=== PATIENT | female | born 1960 | race Caucasian/White ===

== ENCOUNTER 2020-09-27 10:12 | Inpatient (IN) | payer OTHER ==
[~2020-09-27] VITALS: Ht 160 cm; Wt 56.7 kg
[2020-09-27 15:50] LABS: HEMOGLOBIN 14.2 gm/dl (12.3-15.3); RED BLOOD COUNT 5.06 M/UL (4.00-5.10); WHITE BLOOD COUNT 6.5 K/UL (4.5-11.0)
[2020-09-27 16:12] LABS: BUN/CREATININE RATIO 23 (0-10)
[2020-09-27] MEDS ORDERED: GLIMEPIRIDE1 MG PO (16:25)
[2020-09-27] MEDS ORDERED: IPRATROPIUM BRO30 ML (16:29)
[2020-09-27] MEDS ORDERED: OMEPRAZOLE20 MG PO (16:29)
[2020-09-27] MEDS ORDERED: TIZANIDINE HCL4 MG PO (16:30)
[2020-09-27] MEDS ORDERED: MONTELUKAST SOD10 MG PO (16:30)
[2020-09-27] MEDS ORDERED: TRULICITY0.75 MG/0. SQ (16:31)
[2020-09-27] MEDS ORDERED: ASPIRIN81 MG PO (16:34)
[2020-09-27] MEDS ORDERED: HYDROXYZINE HCL50 MG PO (16:35)
[2020-09-27] MEDS ORDERED: FISH OIL 1,0001 EAC1 PO (16:35)
[2020-09-27] MEDS ORDERED: PREGABALIN75 MG PO (16:36)
[2020-09-27] MEDS ORDERED: TOPAMAX 25 MG T25 MG PO (16:37)
[2020-09-27] MEDS ORDERED: COZAAR 50MG TAB50 MG PO (16:39)
[2020-09-27] MEDS ORDERED: INVOKANA100 MG PO (16:42)
[2020-09-27] MEDS ORDERED: SYMBICORT 16010.2 GM INH (16:42)
[2020-09-27] MEDS ORDERED: ATORVASTATIN CA20 MG PO (16:44)
[2020-09-27] MEDS ORDERED: VENTOLIN HFA 66.7 GM INH (16:45)
[2020-09-27] MEDS ORDERED: CELEXA40 MG PO (16:45)
[2020-09-27] MEDS ORDERED: PEPCID20 MG PO (16:46)
[2020-09-27] MEDS ORDERED: XYZAL5 MG PO (16:47)
[2020-09-27] MEDS ORDERED: TESSALON PERLE100 MG PO (16:59)
[2020-09-27] MEDS ORDERED: VITAMIN B-121000 MC3 PO (17:00)
[2020-09-27] MEDS ORDERED: MULTI-BETIC TA1 EACH PO (17:00)
[2020-09-27] MEDS ORDERED: VITAMIN D21250 MCG PO (17:00)
[2020-09-28 07:26] LABS: BUN/CREATININE RATIO 21 (0-10)
[2020-10-02 03:44] LABS: RED BLOOD COUNT 4.26 M/UL (4.00-5.10); WHITE BLOOD COUNT 6.6 K/UL (4.5-11.0)
[2020-10-02 03:47] LABS: HEMOGLOBIN 11.9 gm/dl (12.3-15.3)
[2020-10-02 04:16] LABS: BUN/CREATININE RATIO 21 (0-10)
--- NOTE | 2020-10-02 18:42 | NUR ---
DR ARCHULETA CALLED AT 1600 TO INFORM HIM OF PT EMESIS 100 ML COFFEE GROUND TOLD PT TO SLOW DOWN ON FULL LIQUIDS WCTM....
[2020-10-03 05:06] LABS: BUN/CREATININE RATIO 19 (0-10)
[2020-10-04 02:50] LABS: HEMOGLOBIN 11.4 gm/dl (12.3-15.3); RED BLOOD COUNT 4.1 M/UL (4.00-5.10); WHITE BLOOD COUNT 5.7 K/UL (4.5-11.0)
[2020-10-04 03:17] LABS: BUN/CREATININE RATIO 18 (0-10)
== END 2020-10-04 16:11 | disposition home or self-care (01) | DRG 337 ==
LOC: M/S 12:10 → CDU 10-03 15:02 → M/S 10-04 16:11
PROVIDERS: Internal Medicine Infectious Disease; Surgery; ADMIT Internal Medicine
PROC: 0DNW3ZZ Release Peritoneum, Percutaneous Approach (ICD-10-PCS; 2020-09-30)
PROC: 0DN84ZZ Release Small Intestine, Percutaneous Endoscopic Approach (ICD-10-PCS; principal; 2020-09-30 16:15)
DX: K56.51 Intestinal adhesions [bands], with partial obstruction (principal); Z90.710 Acquired absence of both cervix and uterus; K44.9 Diaphragmatic hernia without obstruction or gangrene; Z20.822 Contact with and (suspected) exposure to COVID-19; K76.89 Other specified diseases of liver; I10 Essential (primary) hypertension; E87.6 Hypokalemia; E78.5 Hyperlipidemia, unspecified; R19.7 Diarrhea, unspecified; E11.9 Type 2 diabetes mellitus without complications; J45.909 Unspecified asthma, uncomplicated; Z86.73 Personal history of transient ischemic attack (TIA), and cerebral infarction without residual deficits; Z82.49 Family history of ischemic heart disease and other diseases of the circulatory system; Z83.3 Family history of diabetes mellitus; R11.2 Nausea with vomiting, unspecified
CPT/HCPCS: 36415; 74018; 80048; 80053; 82962; 83735; 84132; 85025; 85027; 87902; J0690; J1100; J1170; J2001; J2250; J2270; J2405; J2704; J2710; J3010; J3480; J7121; U0002